=== PATIENT | female | born 1980 | race Two or more races ===

== ENCOUNTER 2025-06-04 01:25 | Emergency (ER) | payer SELFPAY ==
[~2025-06-04] VITALS: Ht 177.8 cm; Wt 64.5 kg
[2025-06-04 04:25] LABS: Hematocrit 38.2 % (36.0-46.0); Hemoglobin 12.7 g/dL (12.2-16.2); Mean Corpuscular Hemoglobin 31.6 pg (28.0-32.0); Mean Corpuscular Volume 94.9 fL (80.0-100.0); Nucleated Red Blood Cells % 0.1 %
[2025-06-04 04:31] LABS: Albumin 4.2 g/dL (3.2-4.8); Alkaline Phosphatase 75 U/L (46-116); Anion Gap 6 (5-15); BUN/Creatinine Ratio 10.0 (10.0-20.0); Bilirubin, Total 0.5 mg/dL (0.2-1.0); Calcium 9.2 mg/dL (8.7-10.4); Carbon Dioxide 27 mmol/L (20-31); Glucose 85 mg/dL (74-106); Potassium 4.0 mmol/L (3.5-5.1); Sodium 141 mmol/L (136-145); Total Protein 7.2 g/dL (5.7-8.2)
[2025-06-04 04:35] LABS: Alanine Aminotransferase 50 U/L (7-40); Blood Urea Nitrogen 7 mg/dL (9-23); Chloride 108 mmol/L (98-107)
[2025-06-04 08:33] VITALS: BP 113/79; PULSE 78; RESP 18; TEMP 98.6; O2SAT 99
== END 2025-06-04 11:12 | disposition left against medical advice (07) ==
LOC: ER 01:25 → EDBD 01:25 → ER 10:52
DX: M79.89 Other specified soft tissue disorders (principal); Z53.21 Procedure and treatment not carried out due to patient leaving prior to being seen by health care provider; Z79.899 Other long term (current) drug therapy
CPT/HCPCS: 36415; 80053; 83605; 83880; 85025; 85652; 86141